=== PATIENT | male | born 1950 | race Caucasian/White ===

== ENCOUNTER → 2021-12-23 11:52 | Outpatient (CLI) | payer MEDICARE, BC, SELFPAY ==
--- NOTE | 2021-12-23 12:04 | DI.RAD.S_ITS ---
PROCEDURE: XR ANKLE RT 2V INDICATIONS: ANKLE SWELLING TECHNIQUE: 2 views of the ankle were acquired. COMPARISON: None. FINDINGS: Bones: No fractures or dislocations. Ankle mortise is normally aligned. No suspicious bony lesions. Soft tissues: No tibiotalar joint effusion. Achilles tendon appears normal. IMPRESSION: No evidence acute bony abnormality of the right ankle. If clinical suspicion and/or symptoms persist, further assessment with repeat plain films, or advanced imaging (e.g., CT, MRI, or bone scan) may be helpful for further assessment. Dictated by: Aron Malcolm M.D. on 12/23/2021 at 14:28 Approved by: Aron Malcolm M.D. on 12/23/2021 at 14:30
[2021-12-23 12:48] LABS: Add Manual Diff / Slide Review NO; Basophils Absolute Auto 100 /uL (0-100); Eosinophils Absolute Auto 100 /uL (0-450); Eosinophils Percent Auto 2.1 % (2-4); Hematocrit 42.9 % (41-53); Hemoglobin 14.7 g/dL (13.5-17.5); Lymphocytes Absolute Auto 1600 /uL (1100-4500); Lymphocytes Percent Auto 24.9 % (25-40); Mean Corpuscular HGB Conc 34.2 % (30-36); Mean Corpuscular Hemoglobin 31.7 PG (26-34); Mean Corpuscular Volume 92.8 fL (80-100); Monocytes Absolute Auto 600 /uL (0-900); Monocytes Percent Auto 8.6 % (3-14); Neutrophils Absolute Auto 4100 /uL (1500-7000); Neutrophils Percent Auto 63.4 % (50-75); Platelet Count 206 X10^3/uL (150-400); Red Blood Cell Count 4.63 X10^6/uL (4.5-5.9); Red Cell Distribution Width 14.7 % (11.6-14.8); White Blood Cell Count 6.5 X10^3/uL (4.5-11.0)
[2021-12-23 12:58] LABS: Alanine Aminotransferase 15 IU/L (<50); Albumin 4.6 g/dL (3.5-5.0); Albumin Globulin Ratio 1.6 (1.0-2.8); Alkaline Phosphatase 50 U/L (38-126); Aspartate Aminotransferase 28 IU/L (17-59); BUN Creatinine Ratio 15.5 (6-22); Bilirubin Total 0.5 mg/dL (0.2-1.3); Blood Urea Nitrogen 15 mg/dL (9-20); Calcium 9.5 mg/dL (8.4-10.2); Carbon Dioxide 25 mmol/L (22-32); Chloride 107 mmol/L (98-107); Estimated Glomerular Filt Rate > 60.0 mL/min (>60); Globulin 2.8 g/dL (1.7-4.1); Glucose 99 mg/dL (80-110); HEMOLYSIS 17 (0-50); Potassium 4.5 mmol/L (3.4-5.1); Sodium 140 mmol/L (137-145); Total Protein 7.4 g/dL (6.3-8.2); Uric Acid 6.6 mg/dL (3.5-8.5)
[2021-12-23 13:02] LABS: Erythrocyte Sedimentation Rate 13 MM/HR (0-15)
== END ==
PROVIDERS: PCP Physician Assistant; Referring Provider Physician Assistant; Visit Provider Physician Assistant
DX: M25.571 Pain in right ankle and joints of right foot (principal); R22.41 Localized swelling, mass and lump, right lower limb
CPT/HCPCS: 36415; 73600; 80053; 84550; 85025; 85651

== ENCOUNTER → 2022-06-03 06:53 | Outpatient (CLI) | payer MEDICARE, BC, SELFPAY ==
[2022-06-03 10:10] LABS: Prostate Specific Antigen Scrn 1.53 ng/mL (0.1-4.0)
== END ==
PROVIDERS: PCP Family Medicine; Referring Provider Family Medicine; Visit Provider Family Medicine
DX: Z12.5 Encounter for screening for malignant neoplasm of prostate (principal)
CPT/HCPCS: 36415; G0103

== ENCOUNTER 2022-09-09 21:43 | Emergency (ER) | payer MEDICARE, BC, SELFPAY ==
[2022-09-09 22:07] VITALS: BP 171/87; PULSE 92; RESP 18; TEMP 36.5; O2SAT 96
--- NOTE | 2022-09-09 22:23 | DI.US.S_ITS ---
PROCEDURE: US PERIPH VENOUS LOW EXTREM RT INDICATIONS: KNEE PAIN AND SWELLING TECHNIQUE: Real-time imaging, as well as color and pulse Doppler interrogation, were performed of the lower extremity deep veins from the inguinal ligament to the popliteal fossa. COMPARISON: None. FINDINGS: The common femoral, femoral and popliteal veins are normally compressible, and free of intraluminal thrombus. Color and pulse Doppler demonstrate normal phasic intraluminal flow. There is normal augmentation response to distal compression maneuver. There are suprapatella fluid collections in the knee suggestive of a joint effusion. IMPRESSION: 1. No evidence of deep venous thrombosis in the right lower extremity. Dictated by: Ángel Santiago M.D. on 09/10/2022 at 0:31 Approved by: Ángel Santiago M.D. on 09/10/2022 at 0:34
[2022-09-10] VITALS (7 sets, daily range): BP systolic 121–147; BP diastolic 64–78; PULSE 69–80; RESP 18; O2SAT 92–98
[2022-09-10 02:42] LABS: Body Fluid Appearance CLOUDY; Body Fluid Clotted? NO CLOTS PRESENT; Body Fluid Color Pale Yellow; Mononuclear WBC Body Fluid 5 %; Polynuclear WBC Body Fluid 95 %
[2022-09-10 03:30] LABS: Body Fluid Red Blood Cells 4014 /uL; Body Fluid Tot Nucleated Cells 29968 /uL
--- NOTE | 2022-09-10 03:46 | ED.EXTPRO ---
HPI - Extremity Problem General Chief complaint: Extremity Problem,Nontraumatic Stated complaint: Thinks DVT Time Seen by Provider: 09/09/22 22:22 Source: patient Mode of arrival: Ambulatory History of Present Illness HPI Narrative: 71-year-old male nonsmoker with history of gout and remote history of melanoma presents with a chief complaint of right knee pain over the past few days in the absence of injury. He states he is had increasing pain and swelling of his right knee. Pain is increased with palpation and it is hard for him to walk due to this pain. He denies any numbness, tingling or weakness. He is had no fever or chills. He states he is concerned that perhaps his gout is flaring up or maybe even he has a clot. The pain seems to maybe be worse in the posterior aspect of his knee. He denies any redness or warmth but does admit to swelling. He has no chest pain or shortness of breath. He denies nausea, vomiting or diarrhea. He states he is had no significant dietary indiscretions or classic foods that have triggered his gout in the past. Related Data Previous Rx's Medication Instructions Recorded meloxicam 15 mg tablet See Rx Instructions .Route 05/24/22 .COMPLEX #90 tabs colchicine 0.6 mg tablet 0.6 mg PO DAILY #30 tabs 09/10/22 indomethacin 50 mg capsule 50 mg PO TID PRN pain, moderate 09/10/22 #30 caps Review of Systems Review of Systems Narrative: GENERAL: Denies chills, fatigue, malaise, fever, sweats. HEENT: Denies sinus pain, ear pain, sore throat, difficulty swallowing, dizziness. RESPIRATORY: Denies dyspnea, cough, wheezing, hemoptysis, sputum. CARDIOVASCULAR: Denies chest pain, palpitations, orthopnea, edema, GASTROINTESTINAL: Denies nausea, vomiting, abdominal pain, diarrhea, constipation, melena. : Denies dysuria, frequency, incontinence, hematuria, urinary retention. MUSCULOSKELETAL: See HPI SKIN: See HPI NEUROLOGIC: Denies weakness, headache, numbness, change in speech, confusion, seizures, incoordination. PSYCHIATRIC: No concerning psychosocial issues. 12 point review of systems is negative except for those stated above Patient History Medical History Basal cell carcinoma Gout Hyperlipidemia Malignant melanoma Social History Smoking Status: Never smoker Smoking Status: Never smoker alcohol intake frequency: 0-2 drinks per day Substance Use Type: marijuana Exam Narrative Exam Narrative: GENERAL: [71] year old patient appears stated age. Well-developed patient, in mild distress. HEAD: Atraumatic. Normocephalic. EYES: Pupils equal round and reactive. Extraocular motions intact. No scleral icterus. No injection or drainage. ENT: Nose without bleeding, purulent drainage. Throat without erythema, tonsillar hypertrophy or exudate. Airway patent. NECK: Trachea midline. Non tender CARDIOVASCULAR: Regular rate and rhythm without murmurs, gallops, or rubs. RESPIRATORY: Clear to auscultation. Breath sounds equal bilaterally. No wheezes, rales, or rhonchi. GASTROINTESTINAL: Abdomen soft, non-tender, nondistended. EXTREMITIES: Moderate right knee effusion without erythema or warmth, decreased range of motion secondary to pain both actively and passively. No ligamentous instability. No bony tenderness. No calf pain, negative Homans sign. Compartments are soft, cap refill intact, sensation intact BACK: Nontender without deformity or crepitance. No flank tenderness. NEURO: AOx3. SKIN: No rash or erythema of visible areas Initial Vital Signs Initial Vital Signs: Vital Signs Temperature 97.7 F 09/09/22 22:07 Pulse Rate 92 H 09/09/22 22:07 Respiratory Rate 18 09/09/22 22:07 Blood Pressure 171/87 H 09/09/22 22:07 Pulse Oximetry 96 09/09/22 22:07 Oxygen Delivery Method 09/09/22 22:07 Procedures Joint Aspiration Joint Asp./Inject. 1: Time Out Performed: Yes Side of body: right Skin Prep: Chlorhexidine Local Anesthetic: lidocaine 2% Amount of anesthesia used (mL): 6 Needle Size Used: 22G Fluid Obtained: clear Total fluid obtained (mL): 25 Medication Injected, if any: Lidocaine Amount of medication injected (mL): 6 Patient Tolerated Procedure: Well Course Orders Ordered: ED Orders 09/09/22 22:23 US periph venous low extrem rt Stat 09/10/22 01:40 Body Fluid Culture Stat Cell Count w Diff Body Fluid Stat Crystals Body Fluid - IN-HOUSE Stat Discontinued Medications Colchicine (Colchicine 0.6 Mg Tablet) 1.2 mg PO NOW ONE Stop: 09/10/22 04:13 Last Admin: 09/10/22 04:27 Dose: 1.2 mg Documented By: AP Consultations Consultation #1: Discussed with on-call orthopedist, agrees that septic arthritis extremely unlikely given history, physical exam, lack of organisms noted on fluid analysis. Does state that this inflammatory change can still be gout in the absence of crystals and recommends treating with colchicine and indomethacin with follow-up with patient's manager flight Vital Signs Vital signs: Vital Signs - 8 hr 09/09/22 22:07 09/10/22 01:14 09/10/22 01:14 Temperature 97.7 F Pulse Rate 92 H 80 Respiratory Rate 18 Blood Pressure 171/87 H 147/71 H Pulse Oximetry 96 94 Oxygen Delivery Method Room Air 09/10/22 01:30 09/10/22 01:31 09/10/22 01:31 Temperature Pulse Rate 76 75 Respiratory Rate Blood Pressure 135/71 Pulse Oximetry 94 94 Oxygen Delivery Method 09/10/22 02:00 09/10/22 02:00 09/10/22 02:30 Temperature Pulse Rate 77 Respiratory Rate Blood Pressure 132/65 124/64 Pulse Oximetry 93 Oxygen Delivery Method 09/10/22 02:30 09/10/22 03:00 09/10/22 03:00 Temperature Pulse Rate 69 69 Respiratory Rate Blood Pressure 121/67 Pulse Oximetry 92 94 Oxygen Delivery Method 09/10/22 04:31 Temperature Pulse Rate 80 Respiratory Rate 18 Blood Pressure 142/78 H Pulse Oximetry 98 Oxygen Delivery Method Room Air MDM - Extremity (Nontraumatic) Lab Data Labs: Lab Results 09/10/22 09/10/22 Range/Units 01:40 01:40 Fluid Color Pale yellow Fluid Appearance Cloudy Fluid RBC 4014 /uL Fld Tot Nucleated Cell 71455 /uL Fluid Polynuclear WBCs 95 % Fluid Mononuclear WBCs 5 % Fluid Eosinophils Not Reportable Fluid Other Cells Not Reportable Fluid Crystals None present (NONE) Body Fluid Clot No clots present Imaging Data US - DVT: Radiologist's Impression: [address] [address] Ultrasound Report Signed Patient: Irineo Erickson Jr MR#: [id number] : 1950 Acct:[id number] Age/Sex: 71 / M Date of Service: 09/09/22 Loc: ED Accession Number: [id number] ?? Procedure: US periph venous low extrem rt Ordering Provider: Xiang Rodriguez D.O. PROCEDURE:? US PERIPH VENOUS LOW EXTREM RT ? INDICATIONS:? KNEE PAIN AND SWELLING ? TECHNIQUE:? Real-time imaging, as well as color and pulse Doppler interrogation, were performed of the lower extremity deep veins from the inguinal ligament to the popliteal fossa.? ? COMPARISON:? None. ? FINDINGS:? The common femoral, femoral and popliteal veins are normally compressible, and free of intraluminal thrombus.? Color and pulse Doppler demonstrate normal phasic intraluminal flow.? There is normal augmentation response to distal compression maneuver. ? ? There are suprapatella fluid collections in the knee suggestive of a joint effusion. ? IMPRESSION:? ? 1. No evidence of deep venous thrombosis in the right lower extremity. ? ? Dictated by: Ángel Santiago M.D. on 09/10/2022 at 0:31 ? ? Approved by: Ángel Santiago M.D. on 09/10/2022 at 0:34 ? MDM Narrative Medical decision making narrative: 71-year-old male with history of gout presents with right knee pain and swelling in the absence of injury. Multiple etiologies for patient's symptoms considered including: [DVT, septic arthritis, gout, vs. other] Patient's symptoms improved over duration of stay with above-stated therapies. Ultrasound is reassuring and demonstrates no sign of DVT. Joint arthrocentesis performed and also reassuring, demonstrating a fair amount of white blood cells but no organisms on Gram stain, septic arthritis considered but thought extremely unlikely. Though crystals are not noted Findings and discharge diagnosis discussed with patient/family followed by verbalization of understanding Return precautions discussed with patient/family whom verbalize understanding. Discharge Plan Departure Patient Disposition: Home Clinical Impression: Arthritis of knee, right Instructions: DI for Arthritis Activity Restrictions/Additional Instructions: *You have been diagnosed with [right knee pain and swelling from arthritis, possibly gout but very unlikely to be infectious based on the lack of organisms in the fluid.] *What to do: *Please continue to take your regular medications as directed. [x ] New medication prescriptions sent to your pharmacy: [[facility] in [place] ] [ ] New medication written as a paper prescription [ ] No new medications given *Please follow up with your [facility]. Please call and let them know you were seen in the emergency department and we would like you seen in follow-up. I will electronically transmitted a copy of today's note *Return to Emergency Department if you should have any new, worsening or concerning symptoms, such as [fever greater than 101 F, shaking chills, worsening pain, persistent vomiting or other bothersome symptoms] Prescriptions: New indomethacin 50 mg capsule 50 mg PO TID PRN (Reason: pain, moderate) Qty: 30 0RF Rx Instructions: administer with food or milk colchicine 0.6 mg tablet 0.6 mg PO DAILY Qty: 30 0RF Rx Instructions: Please take one tab daily until resolution No Action meloxicam 15 mg tablet See Rx Instructions .ROUTE .COMPLEX Qty: 90 0RF Dose Instruction: TAKE 1 TABLET BY MOUTH DAILY NEEDED FOR GOUT Rx Instructions: TAKE 1 TABLET BY MOUTH DAILY NEEDED FOR GOUT Referrals: Martell Man MD [Physician] - Bishop Johnson MD [Primary Care Provider] -
[2022-09-10 03:57] LABS: Crystals Body Fluid - IN-HOUSE NONE Present
[2022-09-10] MEDS: COLCHICINE 0.6 MG TABLET 1.2 MG PO (04:27)
[2022-09-10] MEDS: BUPIVACAINE 0.5% W/ EPI (PF) 30 ML VIAL (04:30)
== END 2022-09-10 04:30 | disposition home or self-care (01) ==
PROVIDERS: Emergency Provider Emergency Medicine; PCP Family Medicine
DX: M17.11 Unilateral primary osteoarthritis, right knee (principal)
CPT/HCPCS: 20610; 87070; 87075; 87205; 89051; 89060; 93971; 99283

== ENCOUNTER → 2023-06-28 11:53 | Outpatient (CLI) | payer MEDICARE, BC, SELFPAY ==
[2023-06-28 13:06] LABS: Alanine Aminotransferase 19 IU/L (<50); Albumin 4.5 g/dL (3.5-5.0); Albumin Globulin Ratio 1.7 (1.0-2.8); Alkaline Phosphatase 53 U/L (38-126); Aspartate Aminotransferase 25 IU/L (17-59); Bilirubin Total 0.7 mg/dL (0.2-1.3); Blood Urea Nitrogen 21 mg/dL (9-20); Calcium 9.5 mg/dL (8.4-10.2); Carbon Dioxide 28 mmol/L (22-32); Chloride 104 mmol/L (98-107); Cholesterol 242 mg/dL (140-199); Estimated Glomerular Filt Rate > 60 mL/min (>60); Globulin 2.6 g/dL (1.7-4.1); Glucose 95 mg/dL (80-110); HDL Cholesterol 76 mg/dL (40-60); HEMOLYSIS < 15 (0-50); LDL Cholesterol Calculated 122 mg/dL (<100); Potassium 4.5 mmol/L (3.4-5.1); Sodium 139 mmol/L (137-145); Total Protein 7.1 g/dL (6.3-8.2); Triglycerides 221 mg/dL (35-150); Uric Acid 8.4 mg/dL (3.5-8.5)
== END ==
PROVIDERS: PCP Family Medicine; Referring Provider Family Medicine; Visit Provider Family Medicine
DX: M10.9 Gout, unspecified (principal)
CPT/HCPCS: 36415; 80053; 80061; 84550

== ENCOUNTER → 2023-07-21 09:18 | Outpatient (CLI) | payer MEDICARE, BC, SELFPAY ==
[2023-07-21 10:48] LABS: BUN Creatinine Ratio 25.3 (6-22); Blood Urea Nitrogen 25 mg/dL (9-20); Calcium 9.3 mg/dL (8.4-10.2); Carbon Dioxide 26 mmol/L (22-32); Chloride 104 mmol/L (98-107); Estimated Glomerular Filt Rate > 60 mL/min (>60); Glucose 101 mg/dL (80-110); HEMOLYSIS < 15 (0-50); Potassium 4.4 mmol/L (3.4-5.1); Sodium 139 mmol/L (137-145); Uric Acid 6.4 mg/dL (3.5-8.5)
== END ==
PROVIDERS: PCP Family Medicine; Referring Provider Family Medicine; Visit Provider Family Medicine
DX: M10.9 Gout, unspecified (principal)
CPT/HCPCS: 36415; 80048; 84550

== ENCOUNTER → 2023-08-10 14:13 | Outpatient (CLI) | payer MEDICARE, BC, SELFPAY ==
[2023-08-10 16:23] LABS: BUN Creatinine Ratio 18.6 (6-22); Blood Urea Nitrogen 21 mg/dL (9-20); Calcium 9.4 mg/dL (8.4-10.2); Carbon Dioxide 24 mmol/L (22-32); Chloride 102 mmol/L (98-107); Estimated Glomerular Filt Rate > 60 mL/min (>60); Glucose 91 mg/dL (80-110); HEMOLYSIS < 15 (0-50); Potassium 4.4 mmol/L (3.4-5.1); Sodium 136 mmol/L (137-145); Uric Acid 6.1 mg/dL (3.5-8.5)
== END ==
PROVIDERS: PCP Family Medicine; Referring Provider Family Medicine; Visit Provider Family Medicine
DX: M10.9 Gout, unspecified (principal)
CPT/HCPCS: 36415; 80048; 84550

== ENCOUNTER → 2023-10-17 16:57 | Outpatient (CLI) | payer MEDICARE, BC, SELFPAY ==
[2023-10-17 17:29] LABS: Add Manual Diff / Slide Review NO; Basophils Absolute Auto 100 /uL (0-100); Basophils Percent Auto 0.9 % (0-2); Eosinophils Absolute Auto 100 /uL (0-450); Eosinophils Percent Auto 2.2 % (2-4); Hematocrit 42.7 % (41-53); Hemoglobin 14.3 g/dL (13.5-17.5); Lymphocytes Absolute Auto 1100 /uL (1100-4500); Lymphocytes Percent Auto 16.8 % (25-40); Mean Corpuscular HGB Conc 33.6 % (30-36); Mean Corpuscular Hemoglobin 30.8 PG (26-34); Mean Corpuscular Volume 91.7 fL (80-100); Monocytes Absolute Auto 600 /uL (0-900); Monocytes Percent Auto 8.7 % (3-14); Neutrophils Absolute Auto 4500 /uL (1500-7000); Neutrophils Percent Auto 71.4 % (50-75); Platelet Count 199 X10^3/uL (150-400); Red Blood Cell Count 4.66 X10^6/uL (4.5-5.9); Red Cell Distribution Width 14.3 % (11.6-14.8); White Blood Cell Count 6.4 X10^3/uL (4.5-11.0)
[2023-10-17 17:42] LABS: Alanine Aminotransferase 20 IU/L (<50); Albumin 4.3 g/dL (3.5-5.0); Albumin Globulin Ratio 1.3 (1.0-2.8); Alkaline Phosphatase 69 U/L (38-126); Aspartate Aminotransferase 28 IU/L (17-59); BUN Creatinine Ratio 18.1 (6-22); Bilirubin Total 0.5 mg/dL (0.2-1.3); Blood Urea Nitrogen 19 mg/dL (9-20); Calcium 9.6 mg/dL (8.4-10.2); Carbon Dioxide 28 mmol/L (22-32); Chloride 104 mmol/L (98-107); Cholesterol 239 mg/dL (140-199); Estimated Glomerular Filt Rate > 60 mL/min (>60); Globulin 3.3 g/dL (1.7-4.1); Glucose 100 mg/dL (80-110); HDL Cholesterol 69 mg/dL (40-60); HEMOLYSIS < 15 (0-50); LDL Cholesterol Calculated 111 mg/dL (<100); Potassium 4.3 mmol/L (3.4-5.1); Sodium 138 mmol/L (137-145); Total Protein 7.6 g/dL (6.3-8.2); Triglycerides 296 mg/dL (35-150)
[2023-10-17 18:11] LABS: Prostate Specific Antigen Scrn 2.42 ng/mL (0.1-4.0)
[2023-10-19 03:14] LABS: Apolipoprotein B 109 mg/dL (<90)
[2023-10-20 01:36] LABS: Lipoprotein (a) 39.4 nmol/L (<75.0)
== END ==
PROVIDERS: PCP Family Medicine; Referring Provider Family Medicine; Visit Provider Family Medicine
DX: E78.5 Hyperlipidemia, unspecified (principal); Z12.5 Encounter for screening for malignant neoplasm of prostate; M10.9 Gout, unspecified; C43.9 Malignant melanoma of skin, unspecified
CPT/HCPCS: 36415; 80053; 80061; 82172; 83695; 85025; G0103

== ENCOUNTER 2024-01-19 07:58 | Day surgery (SDC) | payer MEDICARE, BC, SELFPAY ==
[2024-01-19 08:22] VITALS: BP 144/84; PULSE 79; RESP 18; TEMP 36.2; O2SAT 95
[2024-01-19] MEDS: LACTATED RINGERS 1,000 ML 42 ML IV (08:25)
--- NOTE | 2024-01-19 08:43 | P.HP_ITS ---
History of Present Illness History of Present Illness Date Patient Seen: 01/19/24 Time Patient Seen: 08:51 Chief complaint: Dx Colonoscopy w/poss bx Narrative: Colon cancer screening, last scope 10 years. no symptoms PFSH Medical History Basal cell carcinoma Hyperlipidemia Gout Malignant melanoma Social History Smoking Status: Never smoker Meds Home Medications and Allergies Home Medications Medication Instructions Recorded Confirmed Type meloxicam 15 mg tablet 15 mg PO DAILY PRN acute pain from 10/17/23 01/19/24 Rx gout #30 tabs ezetimibe 10 mg tablet (Zetia) 10 mg PO DAILY #90 tabs 10/20/23 01/19/24 Rx Allergies Allergy/AdvReac Type Severity Reaction Status Date / Time allopurinol AdvReac Unknown pain, Verified 01/19/24 08:21 edema, severe inflammation Review of Systems Review of Systems ROS: Yes All systems reviewed with the patient and are negative except as otherwise documented Exam Vital Signs (past 8 hours): - 01/19/24 08:22 Temperature 97.1 F L Pulse Rate 79 Respiratory Rate 18 Blood Pressure 144/84 H Pulse Oximetry 95 Oxygen Delivery Method Room Air Oxygen Delivery Method Room Air Const General: cooperative, healthy appearing and comfortable [facility] Head: normocephalic and atraumatic Eyes General: appearance normal, both eyes and all related structures Sclera: sclerae normal Neck Neck: trachea midline Resp Effort & Inspection: normal respiratory effort and able to speak in complete sentences Cardio Rate: regular rate Rhythm: regular rhythm GI Palpation: soft and No tender Skin General: atrophy Neuro General: patient alert, patient awake and patient oriented x3 Psych Appearance: grossly normal Mental Status: mental status grossly normal Attitude: cooperative Judgment: judgment good Assessment & Plan Assessment & Plan narrative: colonoscopy for colon cancer screening Time Spent With Patient Time with patient: less than 30 minutes
--- NOTE | 2024-01-19 08:54 | PM.OP.COLON ---
Operative Date/Time/Diagnoses Date of procedure: 01/19/24 Time of procedure: 09:09 Pre-op diagnosis: Colon cancer screening Post-op diagnosis: same Procedure & Clinicians Study performed: Colonoscopy with anesthetic Same procedure as scheduled: Yes Indications: Colon cancer screening Surgeon: Jenny Carroll Procedure Notes Procedure in detail: Preop diagnosis: Colon cancer screening Postop diagnosis: Same Operative procedure: Colonoscopy with anesthesia Surgeon: Fiorella Carroll MD Findings: Normal colonoscopy. Scant diverticulosis, no polyps Procedure: Patient placed in a lateral position. Rectal exam performed showing normal tone no masses. Colonoscope inserted into the rectum and advanced to ileocecal valve with minimal difficulty. Insufflation extraction scope and the above findings. Retroflex was included in the rectum. Impression: Scant diverticulosis in the descending colon. No polyps identified. Plan: Repeat colonoscopy in 10 years unless otherwise indicated by change in clinical condition Specimen(s): none sent Complications: none Post-procedure Recommendations: Colonoscopy in 10 years Follow up: as needed Disposition: PACU
[2024-01-19 09:11] VITALS: BP 97/59; PULSE 86; RESP 16; TEMP 36.3; O2SAT 92
[2024-01-19 09:16] VITALS: BP 98/62; PULSE 87; RESP 12; O2SAT 92
[2024-01-19 09:21] VITALS: BP 102/64; PULSE 89; RESP 16; TEMP 36.3; O2SAT 94
[2024-01-19 09:27] VITALS: BP 106/70; PULSE 85; RESP 16; O2SAT 94
== END 2024-01-19 09:47 | disposition home or self-care (01) ==
PROVIDERS: PCP Family Medicine; Referring Provider Surgery; Visit Provider Surgery
PROC: 0DJD8ZZ Inspection of Lower Intestinal Tract, Via Natural or Artificial Opening Endoscopic (ICD-10-PCS; CPT 45378; principal; 2024-01-19 08:45)
DX: Z86.010 Personal history of colon polyps (principal); Z12.11 Encounter for screening for malignant neoplasm of colon; K57.30 Diverticulosis of large intestine without perforation or abscess without bleeding
CPT/HCPCS: G0121; J2704

== ENCOUNTER → 2024-02-21 07:53 | Outpatient (CLI) | payer MEDICARE, BC, SELFPAY ==
[2024-02-21 10:20] LABS: Alanine Aminotransferase 21 IU/L (<50); Albumin 4.2 g/dL (3.5-5.0); Albumin Globulin Ratio 2.2 (1.0-2.8); Alkaline Phosphatase 59 U/L (38-126); Aspartate Aminotransferase 30 IU/L (17-59); BUN Creatinine Ratio 18.6 (6-22); Bilirubin Total 0.7 mg/dL (0.2-1.3); Blood Urea Nitrogen 18 mg/dL (9-20); Calcium 8.7 mg/dL (8.4-10.2); Carbon Dioxide 26 mmol/L (22-32); Chloride 109 mmol/L (98-107); Cholesterol 189 mg/dL (140-199); Estimated Glomerular Filt Rate > 60 mL/min (>60); Globulin 1.9 g/dL (1.7-4.1); Glucose 101 mg/dL (80-110); HDL Cholesterol 75 mg/dL (40-60); HEMOLYSIS < 15 (0-50); LDL Cholesterol Calculated 95 mg/dL (<100); Potassium 4.2 mmol/L (3.4-5.1); Sodium 140 mmol/L (137-145); Total Protein 6.1 g/dL (6.3-8.2); Triglycerides 95 mg/dL (35-150)
[2024-02-22 04:17] LABS: Apolipoprotein B 96 mg/dL (<90)
== END ==
PROVIDERS: PCP Family Medicine; Referring Provider Family Medicine; Visit Provider Family Medicine
DX: E78.5 Hyperlipidemia, unspecified (principal)
CPT/HCPCS: 36415; 80053; 80061; 82172

== ENCOUNTER → 2024-10-15 08:55 | Outpatient (CLI) | payer MEDICARE, BC, SELFPAY ==
[2024-10-15 09:59] LABS: Add Manual Diff / Slide Review NO; Basophils Absolute Auto 100 /uL (0-100); Eosinophils Absolute Auto 200 /uL (0-450); Eosinophils Percent Auto 2.6 % (2-4); Hemoglobin 14.8 g/dL (13.5-17.5); Lymphocytes Absolute Auto 1900 /uL (1100-4500); Lymphocytes Percent Auto 32.5 % (25-40); Mean Corpuscular HGB Conc 33.5 % (30-36); Mean Corpuscular Hemoglobin 31.8 PG (26-34); Mean Corpuscular Volume 94.8 fL (80-100); Monocytes Absolute Auto 500 /uL (0-900); Monocytes Percent Auto 8.5 % (3-14); Neutrophils Absolute Auto 3200 /uL (1500-7000); Neutrophils Percent Auto 55.4 % (50-75); Platelet Count 215 X10^3/uL (150-400); Red Blood Cell Count 4.64 X10^6/uL (4.5-5.9); Red Cell Distribution Width 14.4 % (11.6-14.8); White Blood Cell Count 5.9 X10^3/uL (4.5-11.0)
[2024-10-15 10:41] LABS: Alanine Aminotransferase 22 IU/L (<50); Albumin 4.7 g/dL (3.5-5.0); Alkaline Phosphatase 60 U/L (38-126); Aspartate Aminotransferase 31 IU/L (17-59); BUN Creatinine Ratio 21.7 (6-22); Blood Urea Nitrogen 23 mg/dL (9-20); Calcium 9.3 mg/dL (8.4-10.2); Carbon Dioxide 23 mmol/L (22-32); Chloride 105 mmol/L (98-107); Cholesterol 266 mg/dL (140-199); Estimated Glomerular Filt Rate > 60 mL/min (>60); Globulin 2.3 g/dL (1.7-4.1); Glucose 96 mg/dL (80-110); HDL Cholesterol 78 mg/dL (40-60); HEMOLYSIS < 15 (0-50); LDL Cholesterol Calculated 152 mg/dL (<100); Potassium 4.5 mmol/L (3.4-5.1); Sodium 139 mmol/L (137-145); Triglycerides 178 mg/dL (35-150)
[2024-10-15 11:08] LABS: TSH w/ Reflex to FT4 3.71 uIU/mL (0.47-4.68)
== END ==
PROVIDERS: PCP Family Medicine; Referring Provider Family Medicine; Visit Provider Family Medicine
DX: Z00.00 Encounter for general adult medical examination without abnormal findings (principal); E78.5 Hyperlipidemia, unspecified; Z12.5 Encounter for screening for malignant neoplasm of prostate; M10.9 Gout, unspecified; C43.9 Malignant melanoma of skin, unspecified; Z80.0 Family history of malignant neoplasm of digestive organs; Z12.11 Encounter for screening for malignant neoplasm of colon
CPT/HCPCS: 36415; 80053; 80061; 84443; 84550; 85025; G0103

== ENCOUNTER 2024-12-14 11:04 | Emergency (ER) | payer MEDICARE, BC, SELFPAY ==
[2024-12-14] VITALS (11 sets, daily range): BP systolic 122–172; BP diastolic 61–90; PULSE 65–83; RESP 14–22; TEMP 36.7–36.9; O2SAT 93–98; BMI 30.2
--- NOTE | 2024-12-14 11:23 | EKG_ITS ---
[address] [address] Test Date: 2024-12-14 Pat Name: Irineo Erickson Department: [facility] Room: Gender: Male Reference Librarian: YOLANDA : 1950 Requested By: Order Number: [id number] Reading MD: Josiah Clark Measurements Intervals [place] Rate: 79 P: 56 VA: 190 QRS: -11 QRSD: 104 T: 33 QT: 380 QTc: 435 Interpretive Statements Normal sinus rhythm Electronically Signed On 12-14-2024 18:31:50 PDT by Josiah Clark
--- NOTE | 2024-12-14 11:27 | ED.GENADULT ---
HPI - General Adult General Chief complaint: Abdominal Pain Stated complaint: Abdominal pain Time Seen by Provider: 12/14/24 11:27 Source: patient Mode of arrival: Ambulatory History of Present Illness HPI narrative: 74-year-old gentleman with past medical history only significant for gout comes in with 6 days of significant bowel changes. He has not had a full bowel movement for 6 days, this is not a common issue for him. He has been taking laxatives and is noting that he is getting liquid stool but still feels like there is something in his lower pelvis that needs to ?move?. He did have a fairly recent colonoscopy and was given a clean bill of health. No fevers chills, nausea, vomiting, chest pain, palpitations Related Data Previous Rx's Medication Instructions Recorded meloxicam 15 mg tablet 15 mg PO DAILY PRN acute pain from 10/17/24 gout #30 tabs amoxicillin 875 mg-potassium 1 tab PO BID #20 tabs 12/14/24 clavulanate 125 mg tablet Allergies Allergy/AdvReac Type Severity Reaction Status Date / Time allopurinol AdvReac Unknown pain, Verified 12/14/24 11:12 edema, severe inflammation Review of Systems Review of Systems Narrative: Pertinent positive and negative findings as per HPI Patient History Medical History Basal cell carcinoma Hyperlipidemia Gout Malignant melanoma Social History Smoking Status: Never smoker Smoking Status: Never smoker alcohol intake frequency: 0-2 drinks per day Exam Initial Vital Signs Initial Vital Signs: Vital Signs Temperature 98.4 F 12/14/24 11:12 Pulse Rate 83 12/14/24 11:12 Respiratory Rate 14 12/14/24 11:12 Blood Pressure 145/77 H 12/14/24 11:12 Pulse Oximetry 97 12/14/24 11:12 Oxygen Delivery Method Room Air 12/14/24 11:12 General: Healthy appearing, in no acute distress. Able to give a complete and coherent history. Well-nourished well-developed Respiratory: Lungs are clear to auscultation, no wheezing no rales no rhonchi. Full and symmetrical air movement Cardiac: Regular rate and rhythm no murmurs no bruits Abdomen: Soft, mild tenderness in the lower abdomen without rebound or guarding. Rectal exam is benign. No stool in the rectal vault Skin: Warm and dry, no rashes Neurologic: Grossly neurologically intact with no obvious asymmetries or abnormalities Extremities: No trauma, well perfused Psych: Cooperative, appropriate insight and affect Course Orders Ordered: ED Orders 12/14/24 11:16 EKG-12 Lead Stat 12/14/24 11:26 Complete Blood Count AUTO DIFF Stat Comprehensive Metabolic Panel Stat Lipase Stat 12/14/24 11:35 CT abdomen pelvis w con Stat Ondansetron HCl (Ondansetron 4 Mg Odt) 4 mg PO NOW PRN PRN Reason: Nausea And Vomiting Vital Signs Vital signs: Vital Signs - 8 hr 12/14/24 11:12 Temperature 98.4 F Pulse Rate 83 Respiratory Rate 14 Blood Pressure 145/77 H Pulse Oximetry 97 Oxygen Delivery Method Room Air Medical Decision Making Lab Data 12/14/24 11:26 12/14/24 11:26 Labs: Lab Results 12/14/24 Range/Units 11:26 WBC 7.4 (4.5-11.0) X10^3/uL RBC 4.65 (4.5-5.9) X10^6/uL Hgb 14.7 (13.5-17.5) g/dL Hct 43.6 (41-53) % MCV 93.9 (80-100) fL MCH 31.7 (26-34) PG MCHC 33.8 (30-36) % RDW 13.4 (11.6-14.8) % Plt Count 225 (150-400) X10^3/uL Neut % (Auto) 69.5 (50-75) % Lymph % (Auto) 19.3 L (25-40) % Barry % (Auto) 7.7 (3-14) % Eos % (Auto) 2.6 (2-4) % Baso % (Auto) 0.9 (0-2) % Neut # (Auto) 5100 (9767-3801) /uL Lymph # (Auto) 1400 (1255-1195) /uL Barry # (Auto) 600 (0-900) /uL Eos # (Auto) 200 (0-450) /uL Baso # (Auto) 100 (0-100) /uL Sodium 141 (137-145) mmol/L Potassium 4.4 (3.4-5.1) mmol/L Chloride 108 H (98-107) mmol/L Carbon Dioxide 22 (22-32) mmol/L BUN 21 H (9-20) mg/dL Creatinine 1.07 (0.66-1.25) mg/dL Estimated GFR > 60 (>60) mL/min BUN/Creatinine Ratio 19.6 (6-22) Glucose 104 (80-110) mg/dL Calcium 9.3 (8.4-10.2) mg/dL Total Bilirubin 0.8 (0.2-1.3) mg/dL AST 29 (17-59) IU/L ALT 25 (<50) IU/L Alkaline Phosphatase 64 (38-126) U/L Total Protein 7.6 (6.3-8.2) g/dL Albumin 4.6 (3.5-5.0) g/dL Globulin 3.0 (1.7-4.1) g/dL Albumin/Globulin Ratio 1.5 (1.0-2.8) Lipase 67 (23-300) U/L Urine Dip Bedside Urine Glucose Negative Bedside Urine Bilirubin - Negative Bedside Urine Ketone - Negative Urine Specific Franklin 1.010 Bedside Urine Occult Blood - Negative Bedside Urine pH 6 Bedside Urine Protein - Negative Bedside Urine Urobilinogen - Negative Bedside Urine Nitrite - Negative Bedside Urine Leukocytes - Negative Esterase Point of care testing: Urine Dip Bedside Urine Glucose Negative Bedside Urine Bilirubin - Negative Bedside Urine Ketone - Negative Urine Specific Franklin 1.010 Bedside Urine Occult Blood - Negative Bedside Urine pH 6 Bedside Urine Protein - Negative Bedside Urine Urobilinogen - Negative Bedside Urine Nitrite - Negative Bedside Urine Leukocytes - Negative Esterase MDM Narrative Medical decision making narrative: CC: Abdominal pain, minimal bowel movement for 6 days Complicating co-morbidities: Gout Data collected from: patient Differential considered: Constipation, partial bowel obstruction, neoplastic process Exam documented above, pertinent findings include: His belly is slightly tender in the entire lower abdomen without rebound or guarding. Does not have stool in the rectal vault no obvious masses or tumors or appreciated with rectal exam Lab Test results independently reviewed as above. Pertinent findings: CBC is unremarkable Chemistries are reassuring Imaging studies independently reviewed: Suggests developing colitis/diverticulitis Discussion: 74-year-old gentleman with abdominal pain. He actually has done a very good job in cleaning out his bowels in the diarrhea has effective. He has developing a mild diverticulitis with the pain ongoing for this number of days we will go ahead and treat him with Augmentin. Reviewed findings. At this point I am not seeing any evidence of obstruction or intra-abdominal abscess. No other indication for further workup or hospitalization. He will be safe for discharge Discharge Plan Departure Clinical Impression: Diverticulitis Instructions: DI for Diverticulitis Activity Restrictions/Additional Instructions: Thank you for coming in today You are not in fact constipated. Good job with all of the diuretics. Your CT scan suggests that you are developing an early diverticulitis. There was no evidence of abscess or obstruction. Your blood work does not suggest sepsis or other overwhelming infection. Treatment is 10 days of Augmentin, prescription has been sent to [facility] in [place] Do it you can to continue to keep your stool relatively soft. You can use ibuprofen and Tylenol as needed for the discomfort. If you develop severe pain, fevers or are unable to pass stool or air you do need to return to the ER. Prescriptions: New amoxicillin-pot clavulanate 875-125 mg tablet 1 tab PO BID Qty: 20 0RF No Action meloxicam 15 mg tablet 15 mg PO DAILY PRN (Reason: acute pain from gout) Qty: 30 6RF Referrals: Bishop Johnson MD [Primary Care Provider] -
[2024-12-14 11:32] LABS: Add Manual Diff / Slide Review NO; Basophils Absolute Auto 100 /uL (0-100); Basophils Percent Auto 0.9 % (0-2); Eosinophils Absolute Auto 200 /uL (0-450); Eosinophils Percent Auto 2.6 % (2-4); Hematocrit 43.6 % (41-53); Hemoglobin 14.7 g/dL (13.5-17.5); Lymphocytes Absolute Auto 1400 /uL (1100-4500); Lymphocytes Percent Auto 19.3 % (25-40); Mean Corpuscular HGB Conc 33.8 % (30-36); Mean Corpuscular Hemoglobin 31.7 PG (26-34); Mean Corpuscular Volume 93.9 fL (80-100); Monocytes Absolute Auto 600 /uL (0-900); Monocytes Percent Auto 7.7 % (3-14); Neutrophils Absolute Auto 5100 /uL (1500-7000); Neutrophils Percent Auto 69.5 % (50-75); Platelet Count 225 X10^3/uL (150-400); Red Blood Cell Count 4.65 X10^6/uL (4.5-5.9); Red Cell Distribution Width 13.4 % (11.6-14.8); White Blood Cell Count 7.4 X10^3/uL (4.5-11.0)
--- NOTE | 2024-12-14 11:35 | DI.CT.S_ITS ---
PROCEDURE: CT ABDOMEN PELVIS W CON INDICATIONS: Pelvic pain with increasing constipation for 6 days TECHNIQUE: After the administration of intravenous contrast, axial sections acquired from the lung bases to the pubic symphysis. Coronal and sagittal reformats were performed. For radiation dose reduction, the following was used: automated exposure control, adjustment of mA and/or kV according to patient size. COMPARISON: None. FINDINGS: Image quality: Diagnostic. Lower Chest: No significant findings. ABDOMEN: Liver: No solid mass. Steatosis. Gallbladder: No radiopaque gallstones or wall thickening. Biliary ducts: No biliary dilation. Pancreas: No ductal dilation. Spleen: Size is within normal limits. Adrenal Glands: No adrenal nodules. Kidneys and Ureters: No hydronephrosis. No solid mass. No complex renal cystic lesion which requires follow up. Stomach and Bowel: No obstruction. There is very minimal appearance thickening with inflammatory change in the distal descending/sigmoid colon. Diverticula present. Peritoneum: No abnormal intraperitoneal fluid. No free air. Ventral Wall: No significant ventral hernia. Abdominal Nodes: No retroperitoneal or mesenteric adenopathy by size criteria. Vessels: Aorta and inferior vena cava are normal in size. PELVIS: Pelvic Organs: Prostate gland is enlarged. Bladder: No bladder wall thickening, accounting for underdistention. Pelvic Nodes: No enlarged lymph nodes. Miscellaneous: No inguinal hernias are seen. Bones: No aggressive osseous abnormality. IMPRESSION: Minimal appearance thickening/inflammatory change within the distal descending/proximal sigmoid colon with diverticula. Appearance is suggestive early colitis secondary to diverticulitis. Dictated by: Cece Green M.D. on 12/14/2024 at 12:54 Approved by: Cece Green M.D. on 12/14/2024 at 12:56
[2024-12-14 11:44] LABS: Alanine Aminotransferase 25 IU/L (<50); Albumin 4.6 g/dL (3.5-5.0); Albumin Globulin Ratio 1.5 (1.0-2.8); Alkaline Phosphatase 64 U/L (38-126); Aspartate Aminotransferase 29 IU/L (17-59); BUN Creatinine Ratio 19.6 (6-22); Bilirubin Total 0.8 mg/dL (0.2-1.3); Blood Urea Nitrogen 21 mg/dL (9-20); Calcium 9.3 mg/dL (8.4-10.2); Carbon Dioxide 22 mmol/L (22-32); Chloride 108 mmol/L (98-107); Estimated Glomerular Filt Rate > 60 mL/min (>60); Glucose 104 mg/dL (80-110); HEMOLYSIS < 15 (0-50); Lipase 67 U/L (23-300); Potassium 4.4 mmol/L (3.4-5.1); Sodium 141 mmol/L (137-145); Total Protein 7.6 g/dL (6.3-8.2)
== END 2024-12-14 14:23 | disposition home or self-care (01) ==
PROVIDERS: Emergency Provider Emergency Medicine; PCP Family Medicine
DX: K57.92 Diverticulitis of intestine, part unspecified, without perforation or abscess without bleeding (principal)
CPT/HCPCS: 36415; 74177; 80053; 81003; 83690; 85025; 93005; 99283; 99284; Q9967

== ENCOUNTER → 2024-12-20 16:33 | Outpatient (CLI) | payer MEDICARE, BC, SELFPAY ==
[2024-12-20 17:08] LABS: Add Manual Diff / Slide Review NO; Basophils Absolute Auto 100 /uL (0-100); Basophils Percent Auto 1.5 % (0-2); Eosinophils Absolute Auto 200 /uL (0-450); Eosinophils Percent Auto 3.5 % (2-4); Lymphocytes Absolute Auto 1500 /uL (1100-4500); Lymphocytes Percent Auto 28.4 % (25-40); Mean Corpuscular HGB Conc 34.2 % (30-36); Mean Corpuscular Hemoglobin 31.8 PG (26-34); Mean Corpuscular Volume 92.8 fL (80-100); Monocytes Absolute Auto 400 /uL (0-900); Monocytes Percent Auto 7.8 % (3-14); Neutrophils Absolute Auto 3100 /uL (1500-7000); Neutrophils Percent Auto 58.8 % (50-75); Platelet Count 225 X10^3/uL (150-400); Red Blood Cell Count 4.41 X10^6/uL (4.5-5.9); Red Cell Distribution Width 13.3 % (11.6-14.8); White Blood Cell Count 5.3 X10^3/uL (4.5-11.0)
[2024-12-20 17:19] LABS: Erythrocyte Sedimentation Rate 31 MM/HR (0-15)
[2024-12-20 17:20] LABS: C-Reactive Protein Quant 3.2 mg/dL (<1.0); Uric Acid 7.4 mg/dL (3.5-8.5)
[2024-12-20 17:22] LABS: Rheumatoid Factor < 8.6 IU/mL (<12.0)
[2024-12-20 18:40] LABS: Creatinine Urine Random 180.01 mg/dL
[2024-12-20 18:57] LABS: Microalbumin Urine Random < 0.6 mg/dL (0-1.6)
[2024-12-23 13:09] LABS: CCP Antibodies IgG/IgA 5 units (0-19)
== END ==
PROVIDERS: PCP Family Medicine; Referring Provider Family Medicine; Visit Provider Family Medicine
DX: Z00.00 Encounter for general adult medical examination without abnormal findings (principal); M10.9 Gout, unspecified; M25.50 Pain in unspecified joint; C43.9 Malignant melanoma of skin, unspecified; Z12.11 Encounter for screening for malignant neoplasm of colon; Z80.0 Family history of malignant neoplasm of digestive organs; M79.89 Other specified soft tissue disorders; E78.5 Hyperlipidemia, unspecified
CPT/HCPCS: 36415; 82043; 82570; 84550; 85025; 85651; 86140; 86200; 86430

== ENCOUNTER → 2025-02-16 09:52 | Outpatient (CLI) | payer MEDICARE, BC, SELFPAY ==
[2025-02-16 10:36] LABS: Influenza A - CEPHEID Flu A NEGATIVE (NEGATIVE); Influenza B - CEPHEID Flu B NEGATIVE (NEGATIVE); Respiratory Syncytial Virus Negative (Negative)
[2025-02-16 10:52] LABS: COVID-19 CEPHEID 4-PLEX PCR Negative (Negative)
== END ==
LOC: LAB 09:52
PROVIDERS: PCP Family Medicine; Visit Provider Nurse Practitioner Family
DX: R05.9 Cough, unspecified (principal)
CPT/HCPCS: 0241U

== ENCOUNTER → 2025-03-25 07:08 | Outpatient (CLI) | payer MEDICARE, BC, SELFPAY ==
[2025-03-25 08:33] LABS: Uric Acid 5.3 mg/dL (3.5-8.5)
== END ==
PROVIDERS: PCP Family Medicine; Referring Provider Family Medicine; Visit Provider Family Medicine
DX: M10.9 Gout, unspecified (principal)
CPT/HCPCS: 36415; 84550

== ENCOUNTER → 2025-07-22 12:13 | Outpatient (CLI) | payer MEDICARE, BC, SELFPAY ==
--- NOTE | 2025-07-22 12:14 | DI.US.S_ITS ---
PROCEDURE: US PERIPH VENOUS LOW EXTREM LT INDICATIONS: SWOLLEN FOOT TECHNIQUE: Real-time imaging, as well as color and pulse Doppler interrogation, were performed of the lower extremity deep veins from the inguinal ligament to the popliteal fossa, with documentation of the visualized calf veins. COMPARISON: None. FINDINGS: The common femoral, femoral, popliteal, and the visualized calf veins are normally compressible, and free of intraluminal thrombus. Color and pulse Doppler demonstrate normal phasic intraluminal flow. There is normal augmentation response to distal compression maneuver. There is a simple left Ortega's cyst measuring 2.6 x 1.8 x 0.8 centimeter. There is trace fluid surrounding a tendon in the medial ankle. Additionally, there is trace fluid in the dorsal foot. IMPRESSION: No findings of lower extremity deep venous thrombosis. Trace fluid surrounding a tendon in the medial ankle, suggestive of tendinopathy. Dictated by: Jerry Roldan M.D. on 07/22/2025 at 14:06 Approved by: Jerry Roldan M.D. on 07/22/2025 at 14:07
--- NOTE | 2025-07-22 13:22 | DI.RAD.S_ITS ---
PROCEDURE: XR ANKLE LT MIN 3V INDICATIONS: ankle pain TECHNIQUE: 3 views of the ankle were acquired. COMPARISON: [facility], CR, XR ANKLE RT 2V, 12/23/2021, 11:55. FINDINGS: Bones: There are no osseous abnormalities. Tibiotalar and talocalcaneal joints: Normal in width and alignment without arthritic change. . Small effusion Soft tissues: Mild diffuse soft tissue swelling IMPRESSION: Small ankle effusion and mild diffuse soft tissue swelling Dictated by: Karthik Worley M.D. on 07/23/2025 at 11:57 Approved by: Karthik Worley M.D. on 07/23/2025 at 11:59
--- NOTE | 2025-07-22 13:22 | DI.RAD.S_ITS ---
PROCEDURE: XR FOOT LT MIN 3V INDICATIONS: ankle pain TECHNIQUE: 3 views of the foot were acquired. COMPARISON: None. FINDINGS: Bones: Mild hallux valgus , metatarsus abductus and slight hammertoe deformities 1st through 5th digits. 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 Soft tissues: Mild forefoot midfoot soft tissue swelling IMPRESSION: Chronic findings Dictated by: Karthik Worley M.D. on 07/23/2025 at 11:59 Approved by: Karthik Worley M.D. on 07/23/2025 at 12:01
== END ==
PROVIDERS: PCP Family Medicine; Referring Provider Nurse Practitioner Family; Visit Provider Nurse Practitioner Family
DX: M79.89 Other specified soft tissue disorders (principal); M19.072 Primary osteoarthritis, left ankle and foot; M24.675 Ankylosis, left foot; M20.12 Hallux valgus (acquired), left foot; M25.472 Effusion, left ankle; M25.572 Pain in left ankle and joints of left foot; M79.672 Pain in left foot
CPT/HCPCS: 73610; 73630; 93971